=== PATIENT | male | born 1930 | race Caucasian/White ===

== ENCOUNTER 2016-12-14 14:49 | Inpatient (IN) ==
[2016-12-14] MEDS ORDERED: ZOFRAN IV PRN (15:48)
[2016-12-14] MEDS ORDERED: NS 1,000 ML IV SCH (15:48)
--- NOTE | 2016-12-14 16:10 | EKG Report ---
Test Performed on : 12/14/2016 3:50:01 PM Test Reason : chest pain Blood Pressure : / mmHG Vent. Rate : 077 BPM Atrial Rate : 077 BPM P-R Int : 154 ms QRS Dur : 096 ms QT Int : 362 ms P-R-T Axes : 064 007 037 degrees QTc Int : 409 ms Sinus rhythm. with occasional premature ventricular complexes. Otherwise normal ECG When compared with ECG of 14-FEB-2007 09:24, premature ventricular complexes. are now present Vent. rate has increased BY 29 BPM Confirmed by Maxi COLLAZO, Radhames Montero ([id number]) on 12/15/2016 6:21:59 PM
[2016-12-14 16:46] LABS: MANUAL DIFF NEEDED? NO
--- NOTE | 2016-12-14 16:50 | Diag Imaging Result Doc PS360 ---
EXAM: Frontal and lateral chest, two views HISTORY: Leukocytosis TECHNIQUE: COMPARISON: None. FINDINGS: The lungs are well expanded. The heart is not enlarged. The vessels are not distended. There are no infiltrates. No pleural effusions. IMPRESSION: No pneumonia. Electronically signed by Jian Borges 12/14/2016 4:48 PM
[2016-12-14 16:53] LABS: BASO% 0.3 % (0.0-0.8); EOS# 0.05 X1000 (0.0-0.7); EOS% 0.3 % (0.0-10.0); HEMATOCRIT 36.7 % (42.0-52.0); HEMOGLOBIN 12.2 g/dL (14.0-18.0); IMM GRAN# 0.04 X1000 (0.0-0.04); IMM GRAN% 0.3 % (0.0-0.5); LYMPH# 1.26 X1000 (1.2-3.4); LYMPH% 8.5 % (20.5-51.1); MCH 30.7 PG (27-31); MCHC 33.2 g/dL (33-37); MCV 92.4 FL (81-99); MONO# 1.27 X1000 (0.11-0.59); MONO% 8.6 % (1.7-9.3); MPV 9.9 FL (7.4-10.4); PLT 306 X1000 (130-400); RBC 3.97 XMIL (4.7-6.1)
[2016-12-14] MEDS ORDERED: LEVAQUIN 750 MG/D5W 750 MG/150 ML IVPB IV SCH (17:00)
[2016-12-14 17:02] LABS: INR 1.05; PROTIME 11.1 Seconds (9.2-11.7); PTT 39.4 Seconds (22.0-36.0)
[2016-12-14 17:07] LABS: ALBUMIN 3.6 g/dL (3.5-5.0); CALCIUM 9.3 mg/dL (8.8-10.2); MAGNESIUM 1.9 mg/dL (1.5-2.7); TOTAL BILIRUBIN 0.44 mg/dL (0.20-1.00); TOTAL PROTEIN 6.9 g/dL (6.3-8.3)
[2016-12-14 17:08] LABS: HEMOGLOBIN A1C 5.7 % (4.8-6.0)
[2016-12-14 18:00] LABS: URINE MICRO REVIEW NEEDED? NO; URINE SOURCE CLEAN CATCH
--- NOTE | 2016-12-14 18:04 | Diag Imaging Result Doc PS360 ---
EXAM: ABDOMEN/PELVIS W/O CONTRAST HISTORY: cva tenderness; leukocytosis TECHNIQUE: COMPARISON: None. FINDINGS: Normal spleen and adrenal glands. The gallbladder has been removed. Normal noncontrasted pancreas and liver. Prominent atherosclerosis. There are scattered hypodense renal lesions believed to be cysts. No renal stones. There is a 7 mm stone in the distal right ureter with moderate hydronephrosis. This is located approximately 3 cm from the ureterovesical junction. No bowel obstruction. There are scattered diverticula. The urinary bladder is only mildly distended. Prostate is not enlarged. There is a fat filled right inguinal hernia. IMPRESSION: 1.There is a 7 mm distal right ureteral stone with moderate hydronephrosis 2.Cholecystectomy 3.Prominent atherosclerosis 4.Diverticulosis 5.Fat filled right inguinal hernia Electronically signed by Jian Borges 12/14/2016 6:02 PM
[2016-12-14 18:10] LABS: BILIRUBIN URINE NEGATIVE (NEGATIVE); BLOOD URINE MODERATE (NEGATIVE); COLOR YELLOW; GLUCOSE URINE NEGATIVE (NEGATIVE); LEUKOCYTES URINE LARGE (NEGATIVE); NITRITE URINE NEGATIVE (NEGATIVE); PH URINE 5.5; PROTEIN URINE 50 mg/dL (NEGATIVE); SP GRAVITY URINE 1.014; TURBIDITY URINE HAZY (CLEAR); UR EPITHELIAL CELLS <10 /HPF (<10); URINE BACTERIA 1+ /HPF; URINE CULTURE NEEDED? YES; URINE RBC <10 /HPF (<10); URINE WBC TNTC /HPF (<10); UROBILINOGEN URINE NORMAL (NORMAL)
[2016-12-14 18:24] LABS: UR CREAT RANDOM 119.4 mg/dL (14-26)
--- NOTE | 2016-12-14 19:00 | HISTORY AND PHYSICAL ---
PRIMARY CARE PROVIDER: Dr. Tay Wills. CHIEF COMPLAINT: Fever, flank pain, urinary tract infection symptoms; sent from PCP office HISTORY OF PRESENT ILLNESS: Mr. Malave is a 86-year-old male with a past medical history of hypertension, hyperlipidemia, kidney stones, coronary artery disease , gout, anxiety, hypothyroidism, arthritis and vitamin B12 deficiency. Today the patient is complaining of lower abdominal and flank pain that started Wednesday. Associated symptoms are burning with urination, chills and a subjective fever of 102.4 last night. He denied any other symptoms. Tylenol makes the pain better and nothing makes it worse. The patient is a direct admit from Dr. Wills's office for acute cystitis with possible pyelonephritis. Will order Levaquin, urine studies, and CT of the abdomen and pelvis without contrast. PAST MEDICAL HISTORY: 1. Hypertension. 2. Hyperlipidemia. 3. Kidney stones. 4. Coronary artery disease. 5. Gout. 6. Anxiety. 7. Hypothyroidism. 8. Arthritis. 9. Vitamin B12 deficiency. SURGICAL HISTORY: 1. Hernia repair x3. 2. Cardiac stent 10 years ago. 3. Urinary stent 10 years ago. 4. Multiple lumbar epidurals. SOCIAL HISTORY: Quit smoking in 1975. He smoked for 30 years. He used to drink occasionally but has not drank in years. Denies illegal drug use. Lives at home with his . FAMILY HISTORY: Sister has congestive heart failure and his daughter has fibromyalgia. REVIEW OF SYSTEMS: A 10-point review of systems has been completed and all are negative, except for those mentioned in the above HPI. ALLERGIES: Indocin, penicillins, Septra. HOME MEDICATIONS: 1. Aspirin 81 mg p.o. daily. 2. Tylenol Arthritis 1 tab p.o. 4 times a day p.r.n. 3. Multivitamin 1 tab p.o. daily. 4. Vitamin B12 2500 mcg p.o. daily. 5. Synthroid 25 mcg p.o. daily. 6. Lovastatin 10 mg p.o. at bedtime. 7. Lisinopril/hydrochlorothiazide 20/12.5 mg 1 tab p.o. daily. 8. Amlodipine 5 mg p.o. b.i.d. 9. Allopurinol 100 mg p.o. daily. 10. Librium 25 mg p.o. daily. PHYSICAL EXAM: VITAL SIGNS: Temperature is 100.7 degrees, heart rate 77, respiratory rate 16, blood pressure 128/55, 95% on room air. He is 179 pounds. He is 5 feet 9 inches, BMI 26.6. GENERAL: This is an 86-year-old male that is in no acute distress lying in bed. Answers questions appropriately. HEENT: Atraumatic, normocephalic. Pupils are equal, round, reactive out of 3. Extraocular movements intact. Mucous membranes are dry. NECK: Supple. No JVD. No carotid bruits. CV: Regular rate and rhythm. No murmurs, gallops, or rubs. S1 and S2 auscultated. PULMONARY: Clear to auscultation bilaterally. No accessory muscle use. No labored breathing. GI: Abdomen soft, nontender, nondistended. Bowel sounds in all 4 quadrants. : Positive bilateral CVA tenderness. NEURO: Cranial nerves 2-12 intact. Patient is alert and oriented. EXTREMITIES: 5/5 strength in all extremities. Radial and pedal pulses 2+. No edema. SKIN: Warm, dry, intact. LABS: White blood cell count 14.79, red blood cells 3.97, hemoglobin 12.2, hematocrit 36.7, platelet count 306,000. PT 11.1, INR 1.05, PTT 89.4. Chemistry, sodium 133 , potassium 4.0, chloride 95, carbon dioxide 23, BUN 35, creatinine 1.8, glucose 116, hemoglobin A1c 5.7, calcium 9.3, magnesium 1.9, total bilirubin 0.44, AST 17, ALT 12, alkaline phosphatase 81, CK 45, troponin less than 0.01, plasma lactate 0.9. IMAGING: Chest x-ray findings. The lungs are well expanded. The heart is not enlarged. The vessels are not distended. There are no infiltrates and no pleural effusions. Impression. No pneumonia. EKG. Sinus rhythm with occasional premature ventricular complexes. Rate is 77 beats per minute. Corrected QT 409. Blood cultures are pending. ASSESSMENT AND PLAN: 1. Right ureteral stone with moderate hydronephrosis. Will place a bearden catheter. Consult urology, start IVF, and IV antibiotic therapy. 2. Urinary tract infection. Will order a urine culture and start IV antibiotic therapy. 3. Acute kidney injury versus chronic kidney disease. Will place a bearden catheter, start IVF and check urine studies. Hold nephrotoxic medications. 4. Hypertension. Controlled. 5. Hyperlipidemia. Continue statin. 6. Coronary artery disease. Continue aspirin and statin. 7. Gout. Continue allopurinol. 8. Anxiety. Continue Librium. 9. Hypothyroidism. Continue Synthroid. 10. Arthritis. Continue Tylenol p.r.n. 11. Vitamin B12 deficiency. Continue vitamin B12. 12. Deep venous thrombosis prophylaxis. SCDs. 13. Gastrointestinal prophylaxis. Proton pump inhibitor. Dictated by NAYA Cali for Radha Bowen MD cc: DO Radha Pierre MD The patient was seen and examined by me. I agree with the assessment and plan as dictated. MTDD
[2016-12-14] MEDS ORDERED: MEVACOR PO SCH (21:00)
[2016-12-14] MEDS: NORVASC PO SCH (21:59)
[2016-12-14] MEDS: TYLENOL PO PRN (22:00)
[2016-12-15 00:01] LABS: UR CREAT RANDOM 119.9 mg/dL (14-26); UR PROT RANDOM 64.1 mg/dL
[2016-12-15 05:54] LABS: MANUAL DIFF NEEDED? NO
[2016-12-15 06:09] LABS: BASO% 0.2 % (0.0-0.8); EOS% 0.8 % (0.0-10.0); HEMATOCRIT 34.6 % (42.0-52.0); HEMOGLOBIN 11.6 g/dL (14.0-18.0); IMM GRAN# 0.02 X1000 (0.0-0.04); IMM GRAN% 0.2 % (0.0-0.5); LYMPH# 0.71 X1000 (1.2-3.4); MCH 30.8 PG (27-31); MCHC 33.5 g/dL (33-37); MCV 91.8 FL (81-99); MONO# 1.15 X1000 (0.11-0.59); MONO% 9.7 % (1.7-9.3); MPV 9.9 FL (7.4-10.4); NEUT% 83.1 % (42.2-75.2); PLT 261 X1000 (130-400); RBC 3.77 XMIL (4.7-6.1)
[2016-12-15] MEDS: SODIUM CHLORIDE 0.9% INJ SCH (06:09)
[2016-12-15] MEDS: NS 1,000 ML IV SCH ×4 (06:09→17:35)
[2016-12-15] MEDS: PROTONIX IV SCH (06:09)
[2016-12-15] MEDS: SYNTHROID PO SCH (06:10)
[2016-12-15] MEDS: TYLENOL PO PRN ×2 (06:11→15:42)
[2016-12-15 06:48] LABS: ALBUMIN 3.1 g/dL (3.5-5.0); CALCIUM 8.4 mg/dL (8.8-10.2); MAGNESIUM 1.8 mg/dL (1.5-2.7); POTASSIUM 3.9 mmol/L (3.5-5.1); TOTAL BILIRUBIN 0.39 mg/dL (0.20-1.00); TOTAL PROTEIN 6.2 g/dL (6.3-8.3)
[2016-12-15] MEDS ORDERED: PRILOSEC PO SCH (07:00)
[2016-12-15 07:21] LABS: VITAMIN D 25 HYDROXY 15.5 NG/DL
[2016-12-15] MEDS: NORVASC PO SCH ×2 (08:40→20:57)
[2016-12-15] MEDS: THERA M PLUS PO SCH (08:40)
[2016-12-15] MEDS: ZYLOPRIM PO SCH (08:41)
[2016-12-15] MEDS: ASPIRIN EC PO SCH ×2 (08:41→08:44)
[2016-12-15] MEDS: LIBRIUM PO SCH (08:41)
[2016-12-15] MEDS: VITAMIN B-12 PO SCH (08:41)
[2016-12-15] MEDS ORDERED: PRINZIDE 20/12.5MG PO SCH (09:00)
[2016-12-15] MEDS ORDERED: CUBICIN (FOR INPATIENT USE) 600 MG in NS 100 ML IV SCH (11:45)
--- NOTE | 2016-12-15 17:32 | PROGRESS NOTE ---
DATE: 12/15/2016 SUBJECTIVE: This patient states that he is feeling better. He is still complaining of right inguinal area pain. He denies nausea, vomiting, diarrhea, constipation. No chest pain. No shortness of breath. OBJECTIVE: Vital Signs: Temperature 97.5. Pulse 73. Respiratory rate 18. Blood pressure 113/55. Oxygen saturation 96 on room air. HEENT: Head normocephalic. No trauma. PERRLA. Neck: Supple. No JVD. No masses. Central trachea. Chest: Clear to auscultation. No wheezing, no rales. Cardiovascular: Regular rate and rhythm. Abdomen: Soft, nontender, nondistended. No hepatosplenomegaly. Mild tenderness to palpation at the level of right inguinal area. Extremities: No edema. No clubbing. No cyanosis. Neurological: The patient is alert and oriented x3. No focal deficits. LABORATORY: WBC 11.8, hemoglobin 11.6, hematocrit 34.6, platelets 261. Sodium 135, potassium 3.9, chloride 99, bicarbonate 22, BUN 31, creatinine 1.8, glucose 125, calcium 8.4, albumin 3.1. ASSESSMENT AND PLAN: 1. Right ureteral stone with moderate hydronephrosis. Continue with the same management. Dr. Morse from urology department evaluated this patient, this patient will be n.p.o. after midnight and tomorrow hopefully, the stone is going to be removed, probably this patient will have a stent placement as well. 2. Bacteremia. He has 2 out of 2 positive blood cultures that showed gram-positive cocci. I already put this patient on Daptomycin, and I consulted infectious disease department to evaluate this patient. 3. Urinary tract infection. Continue with IV antibiotics. 4. Acute kidney injury versus chronic kidney disease. We do not have any previous record of BUN and creatinine, we will continue to monitor. 5. Hypertension, controlled. 6. Hyperlipidemia. Continue with statin. 7. History of coronary artery disease. Continue with the same management. 8. History of gout. Continue with allopurinol. 9. Anxiety. Continue with Librium. 10.Hypothyroidism. Continue with Synthroid. 11.Arthritis. Continue with Tylenol p.r.n. 12.Vitamin B12 deficiency. Continue with vitamin B12. 13.Deep venous thrombosis prophylaxis provided by [facility] [place]. 14.Gastrointestinal prophylaxis: Continue with proton pump inhibitor. This patient hopefully will get a procedure tomorrow. For now I am going to hold the aspirin and then I will resume the aspirin after the procedure if everything is okay. cc: Mukund Altman MD
--- NOTE | 2016-12-15 18:08 | CONSULTATION ---
DATE OF CONSULTATION: 12/15/2016 CONCLUSION: The patient has a Gram positive coccal bacteremia. I think this originates from the patient's right ureteral stone, causing a urinary tract infection with the same Gram positive coccus. The Gram positive coccus may be an Enterococcus. It could be a streptococcus. It could be a staphylococcus. The patient has chronic kidney disease, and also he has decreased hearing. RECOMMENDATIONS: I agree with treating with daptomycin. I think that vancomycin should not be used for 2 main reasons: 1. As mentioned above, the patient has chronic kidney disease, with an elevated creatinine, and also the patient has decreased hearing, both of which could be adversely affected by using vancomycin. I would suggest treating the patient with daptomycin for 14 days, starting when the patient's blood culture first turns negative. The patient is scheduled to have a stent placed tomorrow, and have stone removal by Dr. Morse. DISCUSSION: The patient approximately 5 days ago had the onset of left lower quadrant and groin pain. He also had a pressure sensation when he passed his urine. He developed fever and chills, and eventually was admitted to the hospital. His CBC shows a white count of 11,800, hemoglobin 11.6, and platelet count 261,000. Creatinine is 1.8, GFR is 36. Liver function studies are normal. Urinalysis showed white cells and bacteria. Blood cultures growing Gram positive coccus. Urine cultures pending. CT scan of the abdomen and pelvis showed a right ureteral stone, with an associated hydronephrosis. Chest x-ray shows no pneumonia. PAST MEDICAL HISTORY/REVIEW OF SYSTEMS: Eyes and Ears: The patient has decreased hearing, but his vision is still good. Neck: No stiffness. Respiratory: No cough or shortness of breath. Cardiac: No chest pain or palpitations. Gastrointestinal: No nausea, vomiting, or diarrhea. Genitourinary: See present illness. Bones, Joints, and Muscles: No joint swelling or muscle aches. Endocrine: Patient has hypothyroidism, but he is not a diabetic. Hematologic: No history of anemia or bleeding tendency. Neurologic: No stroke or seizure. Integument: No rashes. PREVIOUS HOSPITALIZATIONS AND OPERATIONS: He has had multiple hernia surgeries, a cholecystectomy, prior removal of a renal calculus, placement of coronary artery stents, placement of a renal artery stent. MEDICAL DISEASES: Positive for renal calculi, hypertension, hyperlipidemia, hypothyroidism, gout, and peripheral vascular disease. INFECTIOUS DISEASE HISTORY: Positive for pneumonia and UTI. FAMILY HISTORY: Positive for diabetes mellitus, hypertension, myocardial infarction, and stroke. SOCIAL HISTORY: The patient is . [place] a [place] ALLERGIES: Indocin, penicillin, and Septra. HOME MEDICATIONS: Aspirin, Tylenol, vitamins, vitamin B12, Synthroid, Mevacor, lisinopril/hydrochlorothiazide, amlodipine, allopurinol, and Librium. PHYSICAL EXAMINATION: Vital Signs: Temperature is 97.5 degrees, pulse 73, respirations 18, blood pressure 113/55. Patient weighs 176 pounds. General: This is a fairly healthy-appearing, elderly male. He is in no acute distress. Head, Eyes, Ears, Nose, and Throat: Decreased hearing. He can see near objects. No drainage noted from the nose or ears. Neck: No meningismus. Thorax: No increased AP diameter of the chest. Lungs: Clear to auscultation. Cardiovascular: Regular heart rate. Abdomen: Soft, without masses or tenderness. Extremities: There is some edema in the legs, but no evidence of deep venous thrombosis. Neurologic: Patient is alert. He can move his extremities. His sensation is intact to touch. His memory, as regarding his medical history, was good. Integument: No rash noted. Thank you for the consult. cc: Warner Holley MD
--- NOTE | 2016-12-15 19:33 | CONSULTATION ---
DATE OF CONSULTATION: 12/15/2016 ATTENDING AND REFERRING PHYSICIAN: Hospitalist. HISTORY OF PRESENT ILLNESS: This 86-year-old male with history of renal lithiasis was admitted with abdominal pains and fever. He states he has had the abdominal pains off and on for several weeks. He has a history of kidney stones and had what sounds like ureteroscopy and stone removal over 10 years ago. He had a high fever and was seen by his family physician and sent to the hospital for admission. He denies any other urologic surgery except the stone surgery. He denies problems with urinary tract infections. PAST MEDICAL HISTORY: Renal lithiasis. Gout, anxiety, hypothyroidism, coronary artery disease, elevated cholesterol, hypertension. CURRENT MEDICATIONS: Documented on the chart. PAST SURGICAL HISTORY: Inguinal hernia repairs. Coronary artery stent placement, as noted in the HPI. Lumbar epidurals for back pain. SOCIAL HISTORY: No recent tobacco or alcohol use. ALLERGIES: He is allergic to Indocin, penicillin and Septra. REVIEW OF SYSTEMS: He states usually he is in good health. He denies any problems with diabetes, strokes, or seizures. PHYSICAL EXAMINATION: General: A thin, age apparent, normally developed, white male, oriented in all ways and cooperative. HEENT: Normal for age. He is hard of hearing. Cardiovascular: Regular rate and rhythm. Lungs: Clear. Abdomen: Mildly protuberant soft, nontender. No hepatosplenomegaly or masses. Normal bowel sounds. Mild right CVA tenderness. Left side normal. : Normal male, both testes down. Scrotal exam is normal. Rectal: Was deferred until surgery. Extremities: No clubbing, cyanosis, or edema. Neuro: No focal deficits. DIAGNOSTIC STUDIES: CT scan reveals an approximate 7-8 mm stone in the right distal ureter. No other calcifications in the urinary system are noted. Incidentally noted was a small right inguinal hernia. LABORATORY EVALUATION: He has a white count of 11.8, hemoglobin 11.6, hematocrit of 34.6, platelets of 261,000. Serum electrolytes have a sodium of 135, potassium 3.9, chloride 99, bicarb 22, BUN 31, creatinine 1.8. The patient's urine had too numerous to count white cells per high- powered field. IMPRESSION: Right distal ureteral stone with moderate obstruction. RECOMMEND: Cystoscopic exam, right ureteroscopy, laser lithotripsy of the stone, basket extraction of fragments. The planned procedure, benefits versus risks, possible complications, including, but not limited to, bleeding, infection, not being able to remove the stone, need for further stone surgery was discussed. He seems to understand and desires to proceed. cc: Amandeep Morse MD
[2016-12-16] MEDS: NS 1,000 ML IV SCH ×3 (02:36→23:11)
[2016-12-16] MEDS: PROTONIX IV SCH ×2 (05:26→08:01)
[2016-12-16] MEDS: SYNTHROID PO SCH ×2 (05:26→08:02)
[2016-12-16 06:01] LABS: MANUAL DIFF NEEDED? NO
[2016-12-16 06:06] LABS: BASO% 0.3 % (0.0-0.8); EOS# 0.33 X1000 (0.0-0.7); EOS% 3.6 % (0.0-10.0); HEMATOCRIT 32.8 % (42.0-52.0); IMM GRAN# 0.02 X1000 (0.0-0.04); IMM GRAN% 0.2 % (0.0-0.5); LYMPH# 1.26 X1000 (1.2-3.4); LYMPH% 13.9 % (20.5-51.1); MCHC 33.5 g/dL (33-37); MCV 92.4 FL (81-99); MONO# 0.63 X1000 (0.11-0.59); PLT 263 X1000 (130-400); RBC 3.55 XMIL (4.7-6.1)
[2016-12-16 06:33] LABS: CALCIUM 8.6 mg/dL (8.8-10.2); POTASSIUM 3.9 mmol/L (3.5-5.1)
[2016-12-16] MEDS: VITAMIN B-12 PO SCH (09:13)
[2016-12-16] MEDS: LIBRIUM PO SCH (09:13)
[2016-12-16] MEDS: THERA M PLUS PO SCH (09:13)
[2016-12-16] MEDS: NORVASC PO SCH ×2 (09:13→20:47)
[2016-12-16] MEDS: ZYLOPRIM PO SCH (09:14)
[2016-12-16] MEDS ORDERED: TEFLARO 600 MG in NS 250 ML IV SCH (11:45)
--- NOTE | 2016-12-16 11:49 | PROGRESS NOTE ---
DATE: 12/16/2016 SUBJECTIVE: This patient will have a cystoscopy done today. He is n.p.o. Family members at the bedside. There is apparently a new rash at the level of the thighs and inguinal area. At this point, this is probably related to medication, probably the antibiotics. I talked to the nurse, and she will notify Dr. Holley from Infectious Disease Department. OBJECTIVE: Vital Signs: Temperature 97.8 degrees, pulse 75, respiratory rate 18, blood pressure 129/53, oxygen saturation 99 on room air. HEENT: Head normocephalic. No trauma. PERRLA. Neck: Supple. No JVD. No masses. Central trachea. Skin: There is a rash at the level of the posterior thigh, mostly on the left side, and also popliteal fossa and inguinal area. Cardiovascular: RRR. Abdomen: Soft, nontender, nondistended. No hepatosplenomegaly. Mild tenderness to palpation at the level of the right inguinal area. Extremities: No edema. No clubbing. No cyanosis. Neurological: The patient is alert and oriented x3. No focal deficits. LABORATORY DATA: WBC 9, hemoglobin 11, hematocrit 32.8, platelets 263,000. Sodium 141, potassium 3.9, chloride 106, bicarbonate 23, BUN 30, creatinine 1.7, glucose 118, calcium 8.6. ASSESSMENT AND PLAN: 1. Right ureteral stone with moderate hydronephrosis. Continue with the same management. Dr. Morse from Urology Department evaluated this patient. He is scheduled today to get cystoscopy and stone removal. 2. Bacteremia. He has 2/2 positive blood culture that showed gram-positive cocci. This patient is on daptomycin, but he is having a rash. Dr. Holley will be notified. 3. Urinary tract infection. Continue with the same management. 4. Acute kidney injury versus chronic kidney disease. I do not have any previous records of BUN and creatinine. We will continue to monitor. 5. Hypertension, controlled. 6. Hyperlipidemia. Continue with statin. 7. History of coronary artery disease. Continue with the same management. 8. History of gout. Continue with allopurinol. 9. Anxiety. Continue with Librium. 10. Hypothyroidism. Continue with Synthroid. 11. Arthritis. Continue with Tylenol as needed. 12. Vitamin B12 deficiency. Continue with the same management. 13. Deep vein thrombosis prophylaxis. Provided sequential compression devices. 14. Gastrointestinal prophylaxis. Continue with proton pump inhibitors. Hopefully, this patient will get the procedure today. For now, aspirin has been held, and I will be resume the aspirin after the procedure if everything is fine. cc: Mukund Altman MD
[2016-12-16] MEDS ORDERED: KEFZOL 2 GM/D5W 2 GM/50 ML IVPB ONE (12:10)
[2016-12-16] MEDS: KEFZOL 2 GM/D5W 2 GM/50 ML IVPB IV SCH ×2 (12:20→20:47)
--- NOTE | 2016-12-16 12:43 | PROGRESS NOTE ---
DATE: 12/16/2016 PRESENT ILLNESS: The patient has an oxacillin-sensitive Staphylococcus aureus urinary tract infection and bacteremia. Most likely, because of the renal calculus blocking the ureter, he developed the urinary tract infection first and then the bacteremia originated from the urinary tract infection. The patient today developed a rash, which seems to be due to daptomycin because it started after we started the antibiotic yesterday. MEDICATIONS: The patient has been on daptomycin and I switched him today to Ancef. I have requested that the nurse watch the patient during the first dose. Also, the family tells me that the patient in the past has had Keflex and tolerated it well. Therefore, I think he should tolerate Ancef well. PHYSICAL EXAMINATION: Vital Signs: Temperature is 97.8 degrees, pulse 75, respirations 18, blood pressure 129/53. Generally: This is a somewhat ill-appearing, elderly male. He is in no acute distress. Lungs: Clear to auscultation. Cardiovascular: Regular heart rate. Abdomen: Soft and nontender. Integument: The patient has a diffuse erythematous patchy rash. LABORATORY AND X-RAY: As I mentioned earlier, the patient's blood cultures are growing an oxacillin-sensitive Staphylococcus aureus. Most likely, his urine will be growing the same organism also. CBC today showed a white count of 9050, hemoglobin 11, and platelet count 263,000. Creatinine is 1.7. GFR is 38. There is no new x-ray today. ASSESSMENT AND PLAN: The patient has Staphylococcus aureus bacteremia and urinary tract infection. I have ordered an echocardiogram to look for endocarditis. I have switched the patient to Ancef. Because the patient has mesh in him that may have become infected while he was bacteremic, I plan to treat him for 6 weeks with Ancef and possibly place him on a long-term oral antibiotic such as Keflex when the IV antibiotic is done. COMORBIDITIES: Include that he is very elderly, he has renal calculi which caused him to develop his urinary tract infection and, unfortunately, he has mesh in him and also he has stents in him which could have become infected while he was bacteremic. cc: Warner Holley MD
[2016-12-16] MEDS ORDERED: CUBICIN (FOR INPATIENT USE) 500 MG in NS 100 ML IV SCH (13:00)
[2016-12-16] MEDS ORDERED: DIPRIVAN 1% ONE (13:54)
[2016-12-16] MEDS ORDERED: FENTANYL ONE (13:54)
[2016-12-16] MEDS ORDERED: DITROPAN PO PRN (14:07)
[2016-12-16] MEDS ORDERED: ROBINUL ONE (14:16)
[2016-12-16] MEDS ORDERED: ZOFRAN ONE (14:16)
[2016-12-16] MEDS ORDERED: XYLOCAINE-MPF 2% ONE (14:17)
[2016-12-16] MEDS ORDERED: LR 1,000 ML ONE (14:17)
--- NOTE | 2016-12-16 20:41 | OPERATIVE NOTE ---
PROCEDURE DATE: 12/16/2016 PREOPERATIVE DIAGNOSIS: Right distal ureteral stone with moderate obstruction. POSTOPERATIVE DIAGNOSIS: Right distal ureteral stone with moderate obstruction. PROCEDURE PERFORMED: 1. Cystoscopic exam, right ureteroscopy. 2. Laser lithotripsy with stone basket extraction of fragments. 3. Placement of right double-J stent. ANESTHESIA: General via laryngeal mask. FINDINGS: Cystoscopic exam: Urethra-greater than 21 Estonian, without stricture. Prostate- coapting lateral lobes, elevated bladder neck, length approximately 4 cm. Bladder-normal ureteral orifices bilaterally. Grade 2 trabeculations. No diverticula. No papillary lesions. Right ureteroscopy reveals an approximate 7-8 mm stone impacted in right distal ureter. The ureter was dilated proximal to the stone. Rectal exam revealed a prostate of about 50-60 g, smooth and symmetric. INDICATIONS FOR PROCEDURE: This 86-year-old male has a history of renal lithiasis. He developed abdominal pains and fever and a CT stone search revealed a right distal ureteral stone with moderate obstruction. DESCRIPTION OF OPERATION: After informed consent was obtained from the patient, him receiving IV antibiotics, he was taken to the main OR cystoscopy room, placed in supine position. General anesthesia via laryngeal mask was achieved. He was then placed in a low lithotomy position and prepped and draped in the usual sterile fashion for cystoscopic exam. A 21-Estonian sheath cystoscope was passed the patient's urethra, prostate, and bladder with findings noted above. A 0.035 zip wire was passed through the cystoscope, engaged right ureteral orifice and was able to be pushed past the stone up into the kidney without difficulty. The cystoscope was removed leaving the zip wire in place to act as a safety wire. A 7-Estonian Storz semi-rigid ureteroscope was advanced through the patient's urethra, prostate, and into the bladder. A 0.035 Sensor wire was passed through the ureteroscope and into the ureter. The ureteroscope was advanced over the Sensor wire and up to the stone. The Sensor wire was removed. A 365 micron laser fiber was placed. Laser was set at 8 hertz and 8 patrick, and the stone was fragmented. A 4 wire Nitinol basket was placed and several passes were made to remove stone fragments. These were sent to Pathology for analysis. The ureteroscope was advanced up to the proximal ureter. No further stones or fragments were visualized. The ureteroscope was removed. A 6-Estonian, 24 cm double-J stent was passed over the zip wire and up into the kidney. The renal end was verified by fluoroscopic exam, bladder end directly visualized. The stent removal string was removed since he has bacteremia and will need several weeks worth of antibiotics, at which time when they are completed we will remove the double-J stent. Rectal exam was performed. Estimated blood loss less than 1 mL. He was taken to recovery room in good condition. cc: Amandeep Morse MD
[2016-12-16] MEDS: PERIDEX MT SCH (20:47)
[2016-12-17] MEDS: NS 1,000 ML IV SCH ×3 (01:00→12:33)
[2016-12-17] MEDS: KEFZOL 2 GM/D5W 2 GM/50 ML IVPB IV SCH ×3 (03:22→20:44)
[2016-12-17] MEDS ORDERED: CHLORASEPTIC SORE THROAT LOZENGE MT PRN (04:52)
[2016-12-17] MEDS: SYNTHROID PO SCH ×2 (05:19→06:12)
[2016-12-17] MEDS: PROTONIX IV SCH ×2 (05:19→06:11)
[2016-12-17] MEDS: SODIUM CHLORIDE 0.9% INJ SCH (05:19)
[2016-12-17 06:18] LABS: MANUAL DIFF NEEDED? NO
[2016-12-17 06:28] LABS: BASO% 0.3 % (0.0-0.8); EOS# 0.39 X1000 (0.0-0.7); EOS% 4.2 % (0.0-10.0); HEMOGLOBIN 10.6 g/dL (14.0-18.0); IMM GRAN# 0.02 X1000 (0.0-0.04); IMM GRAN% 0.2 % (0.0-0.5); LYMPH# 1.04 X1000 (1.2-3.4); LYMPH% 11.2 % (20.5-51.1); MCH 30.5 PG (27-31); MCHC 33.1 g/dL (33-37); MONO% 7.5 % (1.7-9.3); MPV 9.9 FL (7.4-10.4); NEUT% 76.6 % (42.2-75.2); PLT 338 X1000 (130-400); RBC 3.48 XMIL (4.7-6.1)
[2016-12-17 06:39] LABS: CALCIUM 8.5 mg/dL (8.8-10.2); POTASSIUM 3.8 mmol/L (3.5-5.1)
--- NOTE | 2016-12-17 07:28 | Diag Imaging Result Doc PS360 ---
EXAM: FLUOROSCOPY CYSTO INDICATION: LEFT STONE EXTRACTION , STENT PLACEMENT COMPARISON: None. FINDINGS: 14 spot fluoroscopic images were provided performed during right ureteral stent placement by Dr. Amandeep Morse. On the initial images, a known obstructing stone seen in the distal right ureter on a recent CT is identified. On the final image, the newly placed right ureteral stent is identified in the expected position. IMPRESSION: As above. Electronically signed by Geoff Sheppard 12/17/2016 7:26 AM
--- NOTE | 2016-12-17 09:59 | ECHO REPORT ---
ORDER DATE: 12/16/2016 ECHOCARDIOGRAPHIC MEASUREMENTS: 1. Interventricular septum 1.1, left ventricular posterior wall 1.1, diastolic diameter 4.8, left atrium 4.9, aorta 3.2. There is mild left atrial enlargement. 2. Aortic valve leaflets are sclerosed, trileaflet, opening normally. Mitral valve was normal. Tricuspid valve was normal. Pulmonic valve was normal. There is mild mitral regurgitation. 3. Trace tricuspid regurgitation. 4. Peak velocity across the aortic valve less than 2 m/sec by Doppler studies. There is no aortic stenosis or regurgitation. 5. There is no pericardial effusion or obvious intracardiac mass or thrombus seen. 6. Normal left ventricular cavity size. Estimated ejection fraction of 65%. cc: MD Warner Brand MD
[2016-12-17] MEDS: THERA M PLUS PO SCH (10:00)
[2016-12-17] MEDS: VITAMIN B-12 PO SCH (10:00)
[2016-12-17] MEDS: PERIDEX MT SCH ×2 (10:00→20:45)
[2016-12-17] MEDS: ZYLOPRIM PO SCH (10:00)
[2016-12-17] MEDS: NORVASC PO SCH ×2 (10:00→20:45)
[2016-12-17] MEDS: LIBRIUM PO SCH (10:02)
--- NOTE | 2016-12-17 14:55 | PROGRESS NOTE ---
DATE: 12/17/2016 SUBJECTIVE: This patient states that he is feeling better. He is not complaining of abdominal pain today, just mild weakness and generalized weakness. OBJECTIVE: Vital Signs: Temperature 97.9 degrees, pulse 63, respiratory rate 18, blood pressure 142/58, O2 saturation 97% on room air. HEENT: Head normocephalic. No trauma. PERRLA. Neck: Supple. No JVD. No masses. Central trachea. There is a rash at the level of the posterior thigh, mostly on the left side, also popliteal fossa, but this is getting better compared with yesterday. Cardiovascular: Regular rate and rhythm. Abdomen: Soft, nontender, nondistended. No hepatosplenomegaly. Extremities: No edema. No clubbing. No cyanosis. Neurological: The patient is alert and oriented x3. No focal deficits. LABORATORY: WBC 9.2, hemoglobin 10.6, hematocrit 32, platelets 338,000. Sodium 141, potassium 3.8, chloride 106, bicarbonate 22, BUN 23, creatinine 1.5, glucose 118, calcium 8.5. ASSESSMENT AND PLAN: 1. Right ureteral stone with moderate hydronephrosis status post cystoscopy, stone removal and stent placement. Dr. Morse is following this patient. Basically he has signed off, likely he will follow this patient as an outpatient. 2. Bacteremia/ this patient has a 2/2 positive culture that showed methicillin sensitive Staphylococcus aureus. Infectious Disease Department is following this patient. He is receiving Ancef and he should receive this treatment for 6 weeks. Yesterday a new blood culture was ordered, so far has been negative. Probably if tomorrow this culture is negative this patient can get a PICC line placed. I am assuming that this patient can be discharged in 1 or 2 days if culture is negative. 3. Urinary tract infection. Continue with the same management. 4. Acute kidney injury versus chronic kidney disease. I do not have any previous records of BUN and creatinine, but the creatinine is improving. We will contain we will continue to monitor. 5. Hypertension. Controlled. 6. Hyperlipidemia. Continue with statins. 7. History of coronary artery disease. Continue with the same management. I will put this patient back on aspirin. This was held because of the procedure. 8. History of gout. Continue with the same management. 9. Anxiety. Continue with Librium. 10. Hypothyroidism. Continue with Synthroid. 11. Arthritis. Continue with Tylenol as needed. 12. B12 deficiency. Continue with the same management. 13. Deep venous thrombosis prophylaxis provided by [employer]. 14. Gastrointestinal prophylaxis. Continue with proton pump inhibitor. cc: Mukund Altman MD
--- NOTE | 2016-12-17 17:07 | PROGRESS NOTE ---
DATE: 12/17/2016 PRESENT ILLNESS: The patient has an oxacillin-sensitive Staph aureus urinary tract infection caused by a right ureteral stone. He became bacteremic with this infection. Yesterday he had a laser lithotripsy of the right ureteral stone performed by Dr. Morse. MEDICATIONS: This is day 1 of being on Ancef. PHYSICAL EXAMINATION: Vital Signs: Temperature is 97.6 degrees, pulse 64, respirations 18, blood pressure 128/60. Generally: This is a somewhat ill-appearing, elderly male. He is in no acute distress. He seems more alert today and talking. Cardiovascular: Heart rate is regular. Lungs: Clear to auscultation. Abdomen: Soft and nontender. Integument: The patient's rash is fading. LAB AND X-RAY: CBC today showed a white count of 9,290, hemoglobin 10.6, and platelet count of 338,000. Creatinine is 1.5. GFR is 44. Both the blood and urine are growing an oxacillin- sensitive Staph aureus. ASSESSMENT AND PLAN: I plan to treat the patient for a total of 6 weeks with Ancef because he has a mesh in his abdomen that may have become hematogenously infected while the patient was bacteremic. My plan now is to see the patient in my office in 3 weeks and then again at 6 weeks and at 6 weeks we will take out the patient's PICC and stop Ancef. I told the patient that after that I think it would be reasonable to put him on Keflex in a reduced dose such as 500 mg p.o. every 12 hours to try to prevent any infection from becoming active if indeed the patient's abdominal mesh, which he has in place, had became infected. The patient's comorbidities, he is very elderly. He had a renal calculus which caused him to develop his urinary tract infection and bacteremia. The patient had a mesh in him because of a hernia repair. cc: Warner Holley MD
[2016-12-17] MEDS: HEPARIN SUBQ SCH (20:45)
[2016-12-18] MEDS: KEFZOL 2 GM/D5W 2 GM/50 ML IVPB IV SCH ×2 (03:17→15:22)
[2016-12-18] MEDS: SYNTHROID PO SCH (05:59)
[2016-12-18] MEDS: PROTONIX IV SCH (05:59)
[2016-12-18] MEDS: NS 1,000 ML IV SCH (05:59)
[2016-12-18 06:11] LABS: MANUAL DIFF NEEDED? NO
[2016-12-18 06:18] LABS: BASO% 0.6 % (0.0-0.8); EOS# 0.75 X1000 (0.0-0.7); EOS% 8.7 % (0.0-10.0); HEMATOCRIT 31.9 % (42.0-52.0); HEMOGLOBIN 10.6 g/dL (14.0-18.0); IMM GRAN# 0.02 X1000 (0.0-0.04); IMM GRAN% 0.2 % (0.0-0.5); LYMPH# 1.25 X1000 (1.2-3.4); LYMPH% 14.6 % (20.5-51.1); MCH 30.7 PG (27-31); MCHC 33.2 g/dL (33-37); MCV 92.5 FL (81-99); MONO# 0.76 X1000 (0.11-0.59); MONO% 8.9 % (1.7-9.3); MPV 9.6 FL (7.4-10.4); PLT 332 X1000 (130-400); RBC 3.45 XMIL (4.7-6.1)
[2016-12-18 06:43] LABS: CALCIUM 8.3 mg/dL (8.8-10.2); POTASSIUM 3.8 mmol/L (3.5-5.1)
[2016-12-18] MEDS: HEPARIN SUBQ SCH (08:03)
[2016-12-18] MEDS: VITAMIN B-12 PO SCH (08:03)
[2016-12-18] MEDS: PERIDEX MT SCH (08:03)
[2016-12-18] MEDS: LIBRIUM PO SCH (08:04)
[2016-12-18] MEDS: ZYLOPRIM PO SCH (08:04)
[2016-12-18] MEDS: THERA M PLUS PO SCH (08:04)
[2016-12-18] MEDS: NORVASC PO SCH (08:04)
[2016-12-18] MEDS ORDERED: ASPIRIN PO SCH (09:00)
--- NOTE | 2016-12-18 11:09 | PROGRESS NOTE ---
DATE: 12/18/2016 SUBJECTIVE: Today, Mr. Malave refers to be doing fine. Denies any acute complaints. OBJECTIVE: Vital: Blood pressure is 137/55, pulse is 63, respirations 20, temperature 98.3 degrees. General: Mr. Malave is a 56-year-old male. He is in bed, does not seem to be in any distress. HEENT: Mucosa pink and moist. Anicteric. Acyanotic. Neck: Supple. Chest: Clear. Cardiovascular: Regular rate and rhythm. No murmurs, no rubs, no gallops. Extremities: No pedal edema. Central Nervous System: Patient is alert and oriented. Abdomen: Soft, nontender. LABORATORY DATA: CBC: WBC is 8.58, hemoglobin is 10.6, platelet count of 332,000. Chemistry is reviewed. Sodium 142, potassium 3.8, chloride is 108, bicarb is 22, creatinine is down to 1.3. It was 1.8 on admission. Microbiology data: Blood culture was positive for MSSA on 12/14/2016. A urine culture was also positive for the same bacteria. Subsequent blood cultures done on 12/16/2016 has come back at 48 hours negative. ASSESSMENT: 1. Sepsis on presentation secondary to hydronephrosis. 2. Right ureteral stone with moderate hydronephrosis, status post cystoscopy, stone removal, and a double J stent placement by Dr. Morse. This was done on 12/16/2016 and patient will be reviewed by Dr. Morse in his office once he gets discharged. 3. Methicillin-sensitive Staphylococcus aureus bacteremia. We think this is also coming from the same genitourinary tract. The patient also has an abdominal mesh. Infectious Disease plans to treat him for a total of 6 weeks with Ancef. 4. Acute kidney injury. The creatinine is improving. I think this was probably postobstructive from #2. 5. Hypertension is controlled. 6. B12 deficiency. 7. Hypothyroidism. Will continue with Synthroid. 8. Vitamin D deficiency. We will continue on vitamin D supplements. 9. Bilateral renal cysts on CT scan. The patient will follow up with Dr. Morse, the urologist. 10. Moderate to severe atherosclerotic burden on the aorta noted. The patient is now negative in the blood as of repeat blood culture. We will go ahead and put in a consult for PICC line placement. Once that is done and it is functional, we will be able to discharge the patient later on today. cc: Nhan Nelson MD
[2016-12-18 12:09] LABS: INR 1.02; PROTIME 10.7 Seconds (9.2-11.7)
[2016-12-18] MEDS ORDERED: NS 250 ML ONE (13:21)
[2016-12-18 15:31] VITALS: BP 138/63
--- NOTE | 2016-12-18 20:29 | DISCHARGE SUMMARY ---
ADMISSION DATE: 12/14/2016 DISCHARGE DATE: 12/18/2016 DISPOSITION: Home. FOLLOWUP: 1. Amandeep Morse MD. 2. Warner Holley MD. 3. Tay Wills DO. INVASIVE PROCEDURES DONE DURING THIS ADMISSION: Cystoscopy, laser lithotripsy with stone extraction and placement of a right double-J stent was done by Dr. Morse on 12/16/2016. IMAGING STUDIES: CT scan of the abdomen and pelvis was done which showed a 7 mm distal right ureter stone with moderate hydronephrosis. ADMISSION DIAGNOSES: 1. Right ureteral stone with moderate hydronephrosis. 2. Urinary tract infection. 3. Dyslipidemia. 4. Gout. DISCHARGE DIAGNOSES: 1. Sepsis on presentation secondary to right hydronephrosis. 2. Right ureter stone with moderate hydronephrosis status post urological intervention. 3. Methicillin-sensitive Staphylococcus aureus SSA bacteremia from genitourinary tract. 4. Acute kidney injury (post-obstructive uropathy). 5. Hypertension controlled. 6. B12 deficiency. 7. Vitamin D deficiency. 8. Hypothyroidism. 9. Bilateral renal cyst on CT scan. 10. Moderate to severe atherosclerotic burden on the aorta. DISCHARGE MEDICATIONS: 1. Levothyroxine 25 mg daily. 2. Lovastatin 10 mg at bedtime. 3. Lisinopril/hydrochlorothiazide 1 tablet daily. 4. Amlodipine 5 mg b.i.d. 5. Chlordiazepoxide 25 mg daily. 6. Aspirin 81 mg daily. 7. Oxybutynin 5 mg b.i.d. 8. Ancef 2 g IV q.8. PRESENTING COMPLAINT: Fever and flank pain. HISTORY OF PRESENT COMPLAINT: Mr. Malave is an 86-year-old male who presented to the emergency department because of fever, flank pain, temperature was about 102.4 the night prior to coming in. He was evaluated and a CT scan did show right hydronephrosis with stone blockage. The patient was admitted for further medical care. HOSPITAL COURSE: The patient was evaluated and admitted to the medical floor with telemonitor, started on broad-spectrum IV antibiotics and Urology was consulted. Patient was seen by Dr. Morse. Urological intervention was performed. The patient tolerated the procedure without complications. Postoperatively we got a blood culture positive for MSSA and antibiotics were narrowed down to Ancef. The patient was also seen by Dr. Holley, Infectious Disease specialist. Patient improved satisfactorily during the hospital course. Today he refers to be doing a whole lot better. Please refer to my progress notes. A PICC line was placed. Patient will be discharged to follow up with his PCP, Dr. Holley and Dr. Morse. At the time of discharge there are no pending labs or imaging studies. DISCHARGE TIME: 37 minutes. cc: Nhan Nelson MD
== END 2016-12-18 17:43 | disposition home health service (06) ==
LOC: DIRADM 14:49 → SUATTDRO 14:49 → 4N 15:30
PROVIDERS: ATTEND Internal Medicine